=== PATIENT | female | born 1985 | race Caucasian/White ===

== ENCOUNTER 2017-03-08 21:07 | Emergency (ER) | payer OTHER ==
[~2017-03-08] VITALS: Ht 167.6 cm; Wt 106.6 kg
[~2017-03-08 21:07] MED LIST: ALBU-136 IH; BACL10TA4 PO; HYDR-4452 PO
[2017-03-08 21:15] VITALS: BP 126/76
--- NOTE | 2017-03-08 22:47 | NUR ---
PT TAKEN TO BED 1 Addendum: 03/08/17 at 2249 by DAVE PT TAKEN TO OF
--- NOTE | 2017-03-08 22:55 | NUR ---
PT BIB FAMILY C/O CHEST PAIN, STARTED AT 1600HOURS, LYING DOWN WHEN SHE COUGH IT HURTS, 8/10 SHARP PAIN, 9 WEEKS, LMP 3.7. EKG DONE, Pupils equal and reactive to light bilaterally. No facial droop noted. No smile deficit noted. Speech normal for patient. Patient is alert and oriented to person, place, time and event. Bilateral hand sub assembly team worker equal. Bilateral foot push equal. LUNGS CL BILAT, ER MD TO KUNAL, ALL OREDR EXECUTED.
--- NOTE | 2017-03-08 22:59 | NUR ---
Dr. Mckeon evaluating patient
[2017-03-08 23:17] VITALS: BP 122/71
== END 2017-03-08 23:19 | disposition home or self-care (01) ==
LOC: MED 21:07
DX: O98.511 Other viral diseases complicating pregnancy, first trimester (principal); B34.8 Other viral infections of unspecified site; O99.511 Diseases of the respiratory system complicating pregnancy, first trimester; J45.909 Unspecified asthma, uncomplicated; Z88.1 Allergy status to other antibiotic agents; Z3A.09 9 weeks gestation of pregnancy
CPT/HCPCS: 93005; 99283

== ENCOUNTER 2018-06-05 20:20 | Emergency (ER) | payer OTHER ==
[~2018-06-05] VITALS: Ht 167.6 cm; Wt 101.2 kg
[~2018-06-05 20:20] MED LIST changes: +ACET-787 PO; -HYDR-4452 PO
[2018-06-05 20:36] VITALS: BP 124/84
--- NOTE | 2018-06-05 20:39 | NUR ---
TO LOBBY VIA W/C, A/W BED, FANG SHERMAN NOTED
--- NOTE | 2018-06-05 21:11 | NUR ---
PT TAKEN TO ULTRASOUND FROM [facility]
--- NOTE | 2018-06-05 21:44 | NUR ---
PT RETURN FROM US TO [facility]
[2018-06-05 21:47] LABS: BASOPHILS % (AUTO) 0.3 % (0.0-2.0); EOSINOPHILS % (AUTO) 0.4 % (0.0-4.0); HEMATOCRIT 39.4 % (36-48); HEMOGLOBIN 13.1 g/dL (12.0-16.0); LYMPHOCYTES # (AUTO) 0.7 K/uL (2.5-16.5); LYMPHOCYTES % (AUTO) 7.2 % (20.5-51.1); MEAN CORPUSCULAR HEMOGLOBIN 29 pg (27-31); MEAN CORPUSCULAR HGB CONC 33 g/dL (33-37); MONOCYTES # (AUTO) 0.7 K/uL (0.8-1.0); MONOCYTES % (AUTO) 6.7 % (1.7-9.3); NEUTROPHILS # (AUTO) 8.9 K/uL (1.8-7.7); NEUTROPHILS % (AUTO) 85.4 % (42.2-75.2); PLATELET COUNT (AUTO) 221 K/uL (140-450); RED BLOOD CELL COUNT(AUTO) 4.48 MIL/uL (4.20-5.40); RED CELL DISTRIBUTION WIDTH 13.4 % (11.6-13.7); WHITE BLOOD COUNT (AUTO) 10.4 K/uL (4.8-10.8)
[2018-06-05 21:55] LABS: ANION GAP 11.5 (8-16); CREATININE 0.7 mg/dL (0.6-1.3); POTASSIUM 3.5 mmol/L (3.5-5.1)
[2018-06-05 22:01] LABS: ALBUMIN 3.9 g/dL (3.4-5.0); TOTAL BILIRUBIN 0.8 mg/dL (0.0-1.0)
--- NOTE | 2018-06-05 22:21 | NUR ---
PT TAKEN TO BED 4
--- NOTE | 2018-06-05 22:25 | NUR ---
ASSUMED CARE OF PT AT THIS TIME. C/O DIFFUSE ABDOMINAL PAIN W/ N/V X 12 HOURS. AAOX4 WITH EVEN AND STEADY GAIT; PATIENT STATES PAIN OF 8/10; VSS; PATIENT POSITIONED FOR COMFORT; HOB ELEVATED; BEDRAILS UP X2; BED DOWN. ER MD MADE AWARE OF PT STATUS. WILL CONTINUE TO MONITOR.
--- NOTE | 2018-06-05 23:15 | NUR ---
Dr. Smith evaluating patient at bedside.
[2018-06-05] MEDS ORDERED: ONDANSETRON 4 MG/2 ML VIAL IM ONE (23:25)
[2018-06-05] MEDS ORDERED: ALUMINUM HYD/MAG/SIMETHICONE 30 ML UDC PO ONE (23:40)
[2018-06-05] MEDS ORDERED: DICYCLOMINE HCL LIQUID 10 MG/5 ML UDC PO ONE (23:40)
[2018-06-05] MEDS ORDERED: LIDOCAINE VISCOUS 2% 20 ML UDC PO ONE (23:40)
--- NOTE | 2018-06-06 00:30 | NUR ---
Patient appears to be resting comfortably in bed. Vital Signs within normal limits. Respirations even and unlabored.
[2018-06-06 00:35] VITALS: BP 118/80
--- NOTE | 2018-06-06 00:35 | NUR ---
Patient discharged with v/s stable. Written and verbal after care instructions given and explained. Patient alert, oriented and verbalized understanding of instructions. Ambulatory with steady gait. All questions addressed prior to discharge. ID band removed. Patient advised to follow up with PMD. Rx of ZOFRAN AND OMEPRAZOLE given. Patient educated on indication of medication including possible reaction and side effects. Opportunity to ask questions provided and answered.
== END 2018-06-06 00:35 | disposition home or self-care (01) ==
LOC: MED 20:20
DX: K29.70 Gastritis, unspecified, without bleeding (principal); J45.909 Unspecified asthma, uncomplicated; Z88.1 Allergy status to other antibiotic agents; Z79.899 Other long term (current) drug therapy
CPT/HCPCS: 36415; 76705; 80053; 81002; 81025; 83690; 85025; 96372; 99285; J2405; Q0092

== ENCOUNTER 2021-05-05 09:41 | Emergency (ER) | payer OTHER ==
[~2021-05-05] VITALS: Ht 167.6 cm; Wt 114.8 kg
[~2021-05-05 09:41] MED LIST changes: -ACET-787 PO; +ALBU-118 IH; -ALBU-136 IH; +HYDR-5191 PO
--- NOTE | 2021-05-05 09:41 | NUR ---
BIBA TO BED 9
--- NOTE | 2021-05-05 09:42 | NUR ---
DR LEDEZMA AT BEDSIDE EVALUATING PT.
[2021-05-05 09:43] VITALS: BP 115/72
--- NOTE | 2021-05-05 09:48 | NUR ---
36yo female biba with c/o sob since midnight. Also reports chest pain 7/10, pressure-like, radiating to back, aggravated by coughing. Pt took Albuterol and Ibuprofen last night which provided relief. +cough non productive. denies exposure to covid, and anyone sick at home. Denies N/V. Pt in gown, on bus driver/monitor. SPO2 98% on RA. A&Ox4, respirations even and unlabored. PMH: Asthma meds: Albuterol allergy: Amoxicillin
[2021-05-05] MEDS ORDERED: ALBUTEROL HFA MDI 90 MCG/ACTUATION 8 GM INH ONE (09:50)
[2021-05-05] MEDS ORDERED: predniSONE 20 MG TAB PO ONE (09:50)
[2021-05-05] MEDS ORDERED: KETOROLAC 60 MG/2 ML VIAL IM ONE (09:50)
--- NOTE | 2021-05-05 09:50 | NUR ---
PT MOVED TO BED 1.
--- NOTE | 2021-05-05 10:08 | NUR ---
MDI THERAPY AND RESPIRATORY GIVEN ORDERED EDUCATION PROVIDED
--- NOTE | 2021-05-05 10:14 | NUR ---
RT AT BEDSIDE FOR BREATHING TREATMENT.
--- NOTE | 2021-05-05 10:15 | NUR ---
RAD AT BEDSIDE.
--- NOTE | 2021-05-05 10:33 | NUR ---
COVID ARUN, NOVEL, AND INFLUENZA AB SAMPLES COLLECTED AND WALKED TO LAB.
--- NOTE | 2021-05-05 10:44 | NUR ---
EMT AT BEDSIDE FOR EKG
--- NOTE | 2021-05-05 10:51 | NUR ---
PT AMBULATED TO RESTROOM WITH STEADY GAIT. PT GIVEN URINE CUP
--- NOTE | 2021-05-05 11:20 | NUR ---
read back from lab for hamilton , stated invalid. Dr. Mckeon made aware and stated for repeat hamilton.
--- NOTE | 2021-05-05 11:25 | NUR ---
REPORT GIVEN TO JOIE LAYNE, TRANSFER OF CARE AT THIS TIME.
--- NOTE | 2021-05-05 11:26 | NUR ---
Second Ann swab collected and walked to lab
--- NOTE | 2021-05-05 12:18 | NUR ---
Read back from lab for hamilton , stated invalid for second swab. Dr. Mckeon made aware.
[2021-05-05 12:51] VITALS: BP 121/77
[2021-05-05] MEDS ORDERED: PRED20TA5 PO (12:53)
== END 2021-05-05 12:50 | disposition home or self-care (01) ==
LOC: MED 09:41
DX: J45.901 Unspecified asthma with (acute) exacerbation (principal); Z20.822 Contact with and (suspected) exposure to COVID-19; B34.9 Viral infection, unspecified; J45.909 Unspecified asthma, uncomplicated; Z88.1 Allergy status to other antibiotic agents; Z79.899 Other long term (current) drug therapy
CPT/HCPCS: 71045; 87426; 87804; 93005; 94664; 96372; 99285; J1885; J7512; U0003

== ENCOUNTER 2022-06-15 16:13 | Emergency (ER) | payer OTHER ==
[~2022-06-15] VITALS: Ht 167.6 cm; Wt 105.2 kg
[~2022-06-15 16:13] MED LIST changes: +AZIT250T3 PO; +PRED20TA5 PO
[2022-06-15 17:00] VITALS: BP 131/74
--- NOTE | 2022-06-15 18:16 | NUR ---
ARUN SWAB COLLECTED AND HANDED TO INDUSTRIAL ARTS TEACHER
--- NOTE | 2022-06-15 18:30 | NUR ---
37/F PRESENTS TO ED WITH C/O COUGH AND HEADACHE X4 DAYS, REPORTS TAKING NYQUIL WITH NO RELIEF. DENIES SOB, FEVERS, CHILLS, STATES DAUGHTER HAD SAME SYMPTOMS LAST WEEK.
[2022-06-15] MEDS ORDERED: NIRM1TAB PO (18:55)
[2022-06-15] MEDS ORDERED: BENZ150C2 PO (18:55)
[2022-06-15 19:10] VITALS: BP 119/78
--- NOTE | 2022-06-15 19:10 | NUR ---
Patient discharged with v/s stable. Written and verbal after care instructions given and explained. Patient alert, oriented and verbalized understanding of instructions. Ambulatory with steady gait. All questions addressed prior to discharge. ID band removed. Patient advised to follow up with PMD. Rx of benzonatate, paxlovid co-pack given. Patient educated on indication of medication including possible reaction and side effects. Opportunity to ask questions provided and answered.
== END 2022-06-15 19:10 | disposition home or self-care (01) ==
LOC: MED 16:13
DX: U07.1 COVID-19 (principal); J45.909 Unspecified asthma, uncomplicated; Z79.899 Other long term (current) drug therapy; Z88.1 Allergy status to other antibiotic agents
CPT/HCPCS: 71045; 99284

== ENCOUNTER 2022-12-02 04:13 | Observation (INO) | payer OTHER ==
[~2022-12-02] VITALS: Ht 167.6 cm; Wt 111.6 kg
[~2022-12-02 04:13] MED LIST changes: +BENZ150C2 PO; +NIRM1TAB PO
[2022-12-02 04:14] VITALS: BP 128/71
--- NOTE | 2022-12-02 04:19 | NUR ---
Pt to bed 3, on monitor.
--- NOTE | 2022-12-02 04:20 | NUR ---
Received patient to ER w/ c/o left flank pain that woke her up from her sleep. Also c/o dysuria. Introduced self to patient, positioned for comfort. Bed to low position sr up, continue to monitor.
--- NOTE | 2022-12-02 04:20 | NUR ---
PT BROUGHT TO BED 3 VIA VIRGILIO WADSWORTH
--- NOTE | 2022-12-02 04:35 | NUR ---
MD Sheth at bedside.
[2022-12-02] MEDS ORDERED: MORPHINE SULFATE 2 MG/ML SYR IVP STA (04:42)
[2022-12-02] MEDS ORDERED: KETOROLAC 30 MG/ML VIAL IVP ONE (04:45)
--- NOTE | 2022-12-02 04:45 | NUR ---
Blood for labwork drawn from right hand iv h.l. site. Patient tolerated procedure. specimens sent to lab.
--- NOTE | 2022-12-02 04:52 | NUR ---
patient medicated as ordered w/ toradol and morphine ivp. Iv site to right hand patent and intact. Bed to low position sr up, continue to monitor. Will observe for any adverse reaction.
--- NOTE | 2022-12-02 04:53 | NUR ---
patient to ct scan via gur[facility] w/ cloud security architect.
[2022-12-02 04:58] LABS: APPEARANCE,URINE CLOUDY (CLEAR); BILIRUBIN,URINE NEGATIVE (NEGATIVE); BLOOD, URINE 3+ (NEGATIVE); COLOR,URINE YELLOW (YELLOW); LEUKOCYTE ESTERASE ,URINE TRACE (NEGATIVE); NITRITE, URINE NEGATIVE (NEGATIVE); UGLUCOSE NEGATIVE (NEGATIVE)
[2022-12-02 05:00] LABS: BASOPHILS # (AUTO) 0.1 K/uL (0.00-0.22); EOSINOPHILS # (AUTO) 0.1 K/uL (0-0.4); EOSINOPHILS % (AUTO) 1.4 % (0.0-4.0); HEMATOCRIT 38.2 % (36-48); HEMOGLOBIN 12.6 g/dL (12.0-16.0); LYMPHOCYTES # (AUTO) 2.7 K/uL (2.5-16.5); LYMPHOCYTES % (AUTO) 31.5 % (20.5-51.1); MEAN CORPUSCULAR HEMOGLOBIN 29 pg (27-31); MEAN CORPUSCULAR HGB CONC 33 g/dL (33-37); MEAN CORPUSCULAR VOLUME 86.8 fL (80-94); MONOCYTES # (AUTO) 0.8 K/uL (0.8-1.0); MONOCYTES % (AUTO) 9.7 % (1.7-9.3); NEUTROPHILS # (AUTO) 4.9 K/uL (1.8-7.7); NEUTROPHILS % (AUTO) 56.4 % (42.2-75.2); PLATELET COUNT (AUTO) 351 K/uL (140-450); WHITE BLOOD COUNT (AUTO) 8.6 K/uL (4.8-10.8)
[2022-12-02 05:02] LABS: RBC,URINE 11-20 (MOD) /HPF (0-5)
--- NOTE | 2022-12-02 05:08 | NUR ---
patient returned from ct scan.
[2022-12-02 05:40] LABS: ALBUMIN 3.7 g/dL (3.4-5.0); ANION GAP 12.7 (8-16); CARBON DIOXIDE 26.9 mmol/L (21-32); CREATININE 0.7 mg/dL (0.6-1.3); POTASSIUM 3.6 mmol/L (3.5-5.1); TOTAL BILIRUBIN 0.3 mg/dL (0.0-1.0)
[2022-12-02] MEDS ORDERED: MORPHINE SULFATE 4 MG/ML SYR ONE (06:33)
--- NOTE | 2022-12-02 06:36 | NUR ---
patient pain decreased to 5/10 but pain is slowly "creeping up." Patient medicated w/ another dose of morphine, 4mg this time. Iv site patent and intact. Bed to low position sr up, continue to monitor. Will monitor for any adverse reaction to medication.
[2022-12-02] MEDS ORDERED: cefTRIAXone 1,000 MG VIAL ONE (06:40)
--- NOTE | 2022-12-02 06:50 | NUR ---
patient medicated as ordered w/ 1gm rocephin ivpb, iv site to right hand patent and intact. Bed to low position sr up. will observe patient for any adverse reaction. continue to monitor.
[2022-12-02] MEDS ORDERED: MORPHINE SULFATE 4 MG/ML SYR IVP ONE (06:55)
--- NOTE | 2022-12-02 07:15 | NUR ---
LAB AT BEDSIDE FOR BLOOD CULTURE
--- NOTE | 2022-12-02 07:15 | NUR ---
Pt report giveN FROM CHERELLE LAYNE. Transfer of care at this time.
--- NOTE | 2022-12-02 07:21 | NUR ---
RECEIVED PT IN BED, RESPIRATIONS EVEN AND UNLABORED, IV 20G R HAND, DENIES PAIN AT THIS TIME, IN A GOWN AND ON THE AIRFRAME AND POWERPLANT TECHNICIAN
--- NOTE | 2022-12-02 07:25 | NUR ---
PER DR LEDEZMA, PT OK TO GET SOMETHING TO DRINK. PT GIVEN CUP OF WATER WITH ICE
--- NOTE | 2022-12-02 07:59 | NUR ---
SWABS WALKED AND HANDED TO LAB
[2022-12-02] MEDS ORDERED: ONDANSETRON 4 MG/2 ML VIAL IVP PRN (08:05)
[2022-12-02] MEDS ORDERED: HYDROcodone/APAP 5/325 MG 1 TAB TAB PO PRN (08:05)
[2022-12-02] MEDS ORDERED: ACETAMINOPHEN 325 MG TAB PO PRN (08:05)
[2022-12-02] MEDS ORDERED: NACL 0.9% 1,000 ML IV SCH (08:05)
[2022-12-02] MEDS ORDERED: MORPHINE SULFATE 4 MG/ML SYR IVP PRN (08:05)
--- NOTE | 2022-12-02 08:20 | NUR ---
RECEIVED TORB ORDER FROM DR DE ANDA FOR D5NS 80CC/HR FOR PT, BS 105 AT THIS TIME, CANCEL NS 80. PT PLACED ON NPO W/ MEDS
[2022-12-02] MEDS ORDERED: METF-713 PO (08:27)
--- NOTE | 2022-12-02 08:29 | NUR ---
DR DE ANDA AT BEDSIDE FOR EVAL, RECEIVED VERBAL ORDER FOR TORADOL 15MG IVP Q6H Addendum: 12/02/22 at [email or web address] DE ANDA, HOLD METFORMIN AND START PT ON HUMALOG SLIDING SCALE OR BS CONTROL
[2022-12-02] MEDS ORDERED: INSULIN LISPRO SLIDING SCALE 100 UNITS/ML VIAL SUBQ PRN (08:40)
[2022-12-02] MEDS ORDERED: KETOROLAC 15 MG/ML VIAL IVP PRN ×2 (08:40→11:00)
[2022-12-02] MEDS: DEXT 5% /NACL 0.9% 1,000 ML IV SCH ×2 (08:52→20:50)
[2022-12-02] MEDS: TAMSULOSIN 0.4 MG CAP PO SCH (08:52)
--- NOTE | 2022-12-02 09:43 | NUR ---
PATIENT HAS BEEN SCREENED AND CATEGORIZED MODERATE NUTRITION RISK. PATIENT WILL BE SEEN WITHIN 3-5 DAYS OF ADMISSION. REVIEWED BY SATISH TUBBS RD
--- NOTE | 2022-12-02 11:17 | NUR ---
PT AMBULATED TO BATHROOM WITH STEADY GAIT
[2022-12-02] MEDS: BLOOD GLUCOSE MONITORING 1 DEV DEV FS SCH ×3 (11:26→21:00)
[2022-12-02] MEDS ORDERED: BLOOD GLUCOSE MONITORING 1 DEV DEV FS SCH (12:00)
--- NOTE | 2022-12-02 13:10 | NUR ---
PT ARRIVED TO UNIT FROM ED. RECEIVED REPORT FROM ED NURSE FCO DAN FOR CONTINUITY OF CARE. PT IN STABLE CONDITION. PT WILL GOT TO PRIMARY RN ADZE.
--- NOTE | 2022-12-02 13:15 | NUR ---
Patient will be admitted to care of BENNIE AJ. Admited to MED SURG. Will go to room 104A. Belongings list completed. Report to GARO LAYNE.
[2022-12-02 16:00] VITALS: BP 110/62
[2022-12-02 20:00] VITALS: BP 102/59
--- NOTE | 2022-12-02 20:23 | NUR ---
RECEIVED REPORT FROM RUSSEL RN , PATIENT WAS IN STABLE CONDITION DURING REPORT. PATIENT WAS ALERT AND ORIENTED X 4. PATIENT DENIED ANY PAIN AT THIS TIME. PATIENT IS ON ROOM AIR. NO NOTED RESPIRATORY DISTRESS. CHEST IS RISING AND FALLING WITHOUT INCIDENT. PATIENT WOULD LIKE TO HAVE FOOD NOT THAT THEY HAVE DISCOVERED HER FLANK PAIN COMING FROM A STONE IN THE URETER. NURSING WILL CONVEY THIS REQUEST WITH THE UPHOLSTERY REPAIRER MD. SIDE RAILS UP X 2 FOR SAFETY AND ADJUSTMENTS. CALL LIGHT IN REACH. [email or web address]
--- NOTE | 2022-12-02 23:53 | NUR ---
PATIENT IN BED SLEPING WITHOUT INCIDENT. NO S/S OF PAIN/DISCOMFORT. NO S/S OF RESPIRATORY DISTRESS. [email or web address]
--- NOTE | 2022-12-03 01:30 | NUR ---
PATIENT IN BED SLEEPING. NO S/S OF PAIN/DISCOMFORT. NO S/S OF RESPIRATORY DISTRESS. [email or web address]
[2022-12-03 04:00] VITALS: BP 110/63
--- NOTE | 2022-12-03 05:00 | NUR ---
PATIENT REMAINS STABLE DURING THE SHIFT. [email or web address]
[2022-12-03] MEDS: BLOOD GLUCOSE MONITORING 1 DEV DEV FS SCH ×2 (06:34→12:22)
[2022-12-03 06:51] LABS: BASOPHILS % (AUTO) 0.3 % (0.0-2.0); EOSINOPHILS # (AUTO) 0.1 K/uL (0-0.4); EOSINOPHILS % (AUTO) 1.1 % (0.0-4.0); HEMATOCRIT 38.8 % (36-48); HEMOGLOBIN 12.9 g/dL (12.0-16.0); LYMPHOCYTES # (AUTO) 2.1 K/uL (2.5-16.5); LYMPHOCYTES % (AUTO) 26.1 % (20.5-51.1); MEAN CORPUSCULAR HEMOGLOBIN 29 pg (27-31); MEAN CORPUSCULAR HGB CONC 33 g/dL (33-37); MONOCYTES # (AUTO) 0.8 K/uL (0.8-1.0); MONOCYTES % (AUTO) 9.9 % (1.7-9.3); NEUTROPHILS # (AUTO) 5.1 K/uL (1.8-7.7); NEUTROPHILS % (AUTO) 62.6 % (42.2-75.2); PLATELET COUNT (AUTO) 330 K/uL (140-450); RED BLOOD CELL COUNT(AUTO) 4.46 MIL/uL (4.20-5.40); RED CELL DISTRIBUTION WIDTH 13.2 % (11.6-13.7); WHITE BLOOD COUNT (AUTO) 8.1 K/uL (4.8-10.8)
--- NOTE | 2022-12-03 07:21 | NUR ---
RECEIVED REPORT FROM NIGHT NURSE SABA FOR CONTINUITY OF CARE. INITIAL ASSESSMENT DONE. IVF INFUSING WELL. CALL LIGHT KEPT WITHIN REACH. WILL CONTINUE TO MONITOR.
--- NOTE | 2022-12-03 07:22 | NUR ---
ENDORSED PATIENT TO SHAHBAZ JAIN, PATIENT WAS STABLE DURING SHIFT REPORT. [email or web address]
[2022-12-03 08:00] VITALS: BP 105/57
[2022-12-03 08:48] LABS: ANION GAP 9.4 (8-16); CARBON DIOXIDE 30.4 mmol/L (21-32); CREATININE 0.8 mg/dL (0.6-1.3); POTASSIUM 3.8 mmol/L (3.5-5.1)
[2022-12-03] MEDS ORDERED: CEFD300C3 PO (08:56)
[2022-12-03] MEDS ORDERED: IBUP-2213 PO (08:57)
[2022-12-03] MEDS ORDERED: TAMS0.4C96 PO (08:57)
[2022-12-03] MEDS: DEXT 5% /NACL 0.9% 1,000 ML IV SCH (09:20)
--- NOTE | 2022-12-03 10:56 | NUR ---
SCHEDULED MEDICATIONS GIVEN. TOLERATING WELL.
[2022-12-03] MEDS: TAMSULOSIN 0.4 MG CAP PO SCH (10:57)
--- NOTE | 2022-12-03 12:22 | NUR ---
BS CHECKED, NO INSULIN COVERAGE NEEDED.
--- NOTE | 2022-12-03 12:41 | NUR ---
PT LEFT, DISCHARGE TO HOME, AMBULATORY. ACCOMPANIED BY HER . IV AND ID BAND REMOVED. PERSONAL BELONGINGS TAKEN. REMAINS STABLE.
== END 2022-12-03 13:40 | disposition home or self-care (01) ==
LOC: MED 04:13 → MTU 07:31
PROVIDERS: ADMIT Student in an Organized Health Care Education/Training Program; ATTEND Student in an Organized Health Care Education/Training Program
DX: N13.6 Pyonephrosis (principal); Z20.822 Contact with and (suspected) exposure to COVID-19; E66.9 Obesity, unspecified; I10 Essential (primary) hypertension; E11.65 Type 2 diabetes mellitus with hyperglycemia; Z79.899 Other long term (current) drug therapy
CPT/HCPCS: 36415; 74176; 80048; 80053; 81001; 82948; 83605; 83690; 83735; 85025; 87040; 87081; 87086; 87426; 96361; 96365; 96366; 96372; 96375; 96376; 99285; G0378; J0696; J1644; J1815; J1885; J2270; J2405; J7060

== ENCOUNTER 2022-12-08 08:24 | Observation (INO) | payer OTHER ==
[~2022-12-08] VITALS: Ht 167.6 cm; Wt 109.0 kg
[~2022-12-08 08:24] MED LIST changes: -AZIT250T3 PO; +CEFD300C3 PO; +IBUP-2213 PO; +METF-713 PO; +TAMS0.4C96 PO
[2022-12-08 08:29] VITALS: BP 122/67
[2022-12-08] MEDS ORDERED: ACETAMINOPHEN 325 MG TAB PO ONE (08:50)
[2022-12-08] MEDS ORDERED: ONDANSETRON 4 MG/2 ML VIAL IVP ONE (08:55)
[2022-12-08] MEDS ORDERED: MORPHINE SULFATE 4 MG/ML SYR IVP ONE (08:55)
[2022-12-08] MEDS ORDERED: ONDANSETRON 4 MG/2 ML VIAL ONE (08:56)
[2022-12-08] MEDS ORDERED: MORPHINE SULFATE 4 MG/ML SYR ONE (08:56)
[2022-12-08 09:16] LABS: BASOPHILS # (AUTO) 0.1 K/uL (0.00-0.22); BASOPHILS % (AUTO) 0.6 % (0.0-2.0); EOSINOPHILS # (AUTO) 0.1 K/uL (0-0.4); EOSINOPHILS % (AUTO) 0.6 % (0.0-4.0); HEMATOCRIT 40.1 % (36-48); HEMOGLOBIN 13.3 g/dL (12.0-16.0); LYMPHOCYTES # (AUTO) 2.1 K/uL (2.5-16.5); LYMPHOCYTES % (AUTO) 20.1 % (20.5-51.1); MEAN CORPUSCULAR HEMOGLOBIN 29 pg (27-31); MEAN CORPUSCULAR HGB CONC 33 g/dL (33-37); MONOCYTES # (AUTO) 0.7 K/uL (0.8-1.0); MONOCYTES % (AUTO) 6.9 % (1.7-9.3); NEUTROPHILS # (AUTO) 7.5 K/uL (1.8-7.7); NEUTROPHILS % (AUTO) 71.8 % (42.2-75.2); PLATELET COUNT (AUTO) 328 K/uL (140-450); RED BLOOD CELL COUNT(AUTO) 4.61 MIL/uL (4.20-5.40); RED CELL DISTRIBUTION WIDTH 13.6 % (11.6-13.7); WHITE BLOOD COUNT (AUTO) 10.4 K/uL (4.8-10.8)
[2022-12-08 10:17] LABS: ANION GAP 13.7 (8-16); CARBON DIOXIDE 27.1 mmol/L (21-32); CREATININE 0.8 mg/dL (0.6-1.3); POTASSIUM 3.8 mmol/L (3.5-5.1); TOTAL BILIRUBIN 0.5 mg/dL (0.0-1.0)
[2022-12-08] MEDS ORDERED: KETOROLAC 30 MG/ML VIAL IVP ONE (11:00)
[2022-12-08] MEDS ORDERED: ENAL5TAB48 PO (13:15)
[2022-12-08] MEDS ORDERED: KETOROLAC 15 MG/ML VIAL ONE (13:47)
[2022-12-08] MEDS ORDERED: NACL 0.9% 1,000 ML IV ONE (13:50)
[2022-12-08] MEDS ORDERED: KETOROLAC 15 MG/ML VIAL IVP ONE (13:50)
[2022-12-08] MEDS ORDERED: ONDANSETRON 4 MG/2 ML VIAL IVP PRN (14:10)
[2022-12-08] MEDS ORDERED: LORazepam 2 MG/ML VIAL IVP PRN (14:10)
[2022-12-08] MEDS: NACL 0.9% 1,000 ML IV SCH (14:10)
[2022-12-08] MEDS ORDERED: ACETAMINOPHEN 325 MG TAB PO PRN (14:10)
[2022-12-08] MEDS ORDERED: MORPHINE SULFATE 2 MG/ML SYR IVP PRN (14:10)
[2022-12-08] MEDS ORDERED: HYDROcodone/APAP 5/325 MG 1 TAB TAB PO PRN (14:10)
[2022-12-08] MEDS ORDERED: LEVOFLOXACIN 500 MG/D5W PREMIX 100 ML IV SCH (16:00)
--- NOTE | 2022-12-08 17:20 | NUR ---
PATIENT HAS BEEN SCREENED AND CATEGORIZED MODERATE NUTRITION RISK. PATIENT WILL BE SEEN WITHIN 3-5 DAYS OF ADMISSION. / REVIEWED BY SATISH TUBBS RD
--- NOTE | 2022-12-08 17:55 | NUR ---
[facility] AWAKE, ALERT, AND ORIENTED X4. SPEECH CLEAR. NO SOB, NOTED. C/O LEFT LOWER BACK PAIN /. SKIN WARM, DRY AND INTACT. KEEP COMFORTABLE ON BED. WILL ENDORSE TO NEXT SHIFT NURSE FOR COMPLETE ADMISSION PROCESS. INFORMED CHARGE NURSE TRISTEN QUACH.
--- NOTE | 2022-12-08 18:03 | NUR ---
PT TAKEN PER THIS RN TO ROOM 106B WITH DINER TRAY. REPORT GIVEN TO WINDOW ASSEMBLER AND GIVEN TO ROVERTO HAGAN. ALL INFO GIVEN AND QUESTIONS ANSERED. VSS/NAD. ALL BELONGINGS SENT WITH PT
--- NOTE | 2022-12-08 19:14 | NUR ---
INITIAL REPORT GIVEN TO PAUL QUACH FOR PT. COMPLETE ADMISSION PROCESS.
[2022-12-08 20:00] VITALS: BP 108/66
[2022-12-09] MEDS: NACL 0.9% 1,000 ML IV SCH ×2 (01:48→10:36)
--- NOTE | 2022-12-09 04:31 | NUR ---
MRSA SCREEN VIA NASAL SWAB COLLECTED AND READY FOR LAB P/U.
--- NOTE | 2022-12-09 07:15 | NUR ---
REPORT RECEIVED FROM NIGHT NURSE PAUL FOR CONTINUITY OF CARE. INITIAL ASSESSMENT DONE. NO C/O PAIN OR DISCOMFORT. CALL LIGHT KEPT WITHIN REACH. WILL CONTINUE TO MONITOR.
[2022-12-09 07:47] LABS: BASOPHILS % (AUTO) 0.2 % (0.0-2.0); EOSINOPHILS # (AUTO) 0.1 K/uL (0-0.4); HEMATOCRIT 39.5 % (36-48); HEMOGLOBIN 13.2 g/dL (12.0-16.0); LYMPHOCYTES # (AUTO) 2.4 K/uL (2.5-16.5); LYMPHOCYTES % (AUTO) 25.1 % (20.5-51.1); MEAN CORPUSCULAR HEMOGLOBIN 29 pg (27-31); MEAN CORPUSCULAR HGB CONC 33 g/dL (33-37); MEAN CORPUSCULAR VOLUME 86.6 fL (80-94); MONOCYTES % (AUTO) 9.8 % (1.7-9.3); NEUTROPHILS # (AUTO) 6.2 K/uL (1.8-7.7); NEUTROPHILS % (AUTO) 63.9 % (42.2-75.2); PLATELET COUNT (AUTO) 288 K/uL (140-450); RED BLOOD CELL COUNT(AUTO) 4.57 MIL/uL (4.20-5.40); RED CELL DISTRIBUTION WIDTH 13.5 % (11.6-13.7); WHITE BLOOD COUNT (AUTO) 9.7 K/uL (4.8-10.8)
[2022-12-09 08:00] VITALS: BP 110/76
[2022-12-09 08:13] LABS: ALBUMIN 3.5 g/dL (3.4-5.0); CREATININE 0.9 mg/dL (0.6-1.3); MAGNESIUM 1.7 mg/dL (1.8-2.4)
--- NOTE | 2022-12-09 08:57 | NUR ---
SCHEDULED MEDICATIONS GIVEN. TOLERATING WELL.
[2022-12-09] MEDS ORDERED: ENOXAPARIN 40 MG/0.4 ML SYR SUBQ SCH (09:00)
--- NOTE | 2022-12-09 13:05 | NUR ---
SEEN BY DR. SAMPSON WITH DISCHARGE ORDER.
--- NOTE | 2022-12-09 14:35 | NUR ---
PT LEFT, DISCHARGE TO HOME. TRANSPORTED BY PRIVATE VEHICLE. AMBULATORY. ACCOMPANIED BY HER . ALERT AND ORIENTED X4. IV AND ID BAND REMOVED. PERSONAL BELONGINGS TAKEN. DISCHARGE PAPERWORKS SIGN BY PT. NO C/O PAIN OR DISCOMFORT. REMAINS STABLE.
== END 2022-12-09 14:44 | disposition home or self-care (01) ==
LOC: MED 08:24 → MTU 14:13
PROVIDERS: ADMIT Hospitalist; ATTEND Hospitalist
DX: N20.0 Calculus of kidney (principal); Z20.822 Contact with and (suspected) exposure to COVID-19; I10 Essential (primary) hypertension; E86.0 Dehydration; E11.9 Type 2 diabetes mellitus without complications; J45.909 Unspecified asthma, uncomplicated; E66.9 Obesity, unspecified; Z79.899 Other long term (current) drug therapy
CPT/HCPCS: 36415; 74176; 80053; 83690; 83735; 84703; 85025; 87081; 87426; 96361; 96365; 96372; 96375; 96376; 99285; G0378; J1650; J1885; J1956; J2270; J2405

== ENCOUNTER 2023-11-21 08:25 | Emergency (ER) | payer OTHER ==
[~2023-11-21] VITALS: Ht 167.6 cm; Wt 107.5 kg
[~2023-11-21 08:25] MED LIST changes: +ENAL5TAB48 PO
[2023-11-21 08:36] VITALS: BP 132/85; PULSE 113; RESP 17; TEMP 99.4; O2SAT 100
[2023-11-21 09:53] LABS: BASOPHILS % (AUTO) 0.6 % (0.0-2.0); EOSINOPHILS # (AUTO) 0.1 K/uL (0-0.4); EOSINOPHILS % (AUTO) 1.5 % (0.0-4.0); HEMATOCRIT 41.4 % (36-48); HEMOGLOBIN 13.9 g/dL (12.0-16.0); LYMPHOCYTES # (AUTO) 1.5 K/uL (2.5-16.5); LYMPHOCYTES % (AUTO) 20.9 % (20.5-51.1); MEAN CORPUSCULAR HEMOGLOBIN 29 pg (27-31); MEAN CORPUSCULAR HGB CONC 34 g/dL (33-37); MEAN CORPUSCULAR VOLUME 86.3 fL (80-94); MONOCYTES % (AUTO) 13.3 % (1.7-9.3); NEUTROPHILS # (AUTO) 4.6 K/uL (1.8-7.7); NEUTROPHILS % (AUTO) 63.7 % (42.2-75.2); PLATELET COUNT (AUTO) 237 K/uL (140-450); RED BLOOD CELL COUNT(AUTO) 4.79 MIL/uL (4.20-5.40); RED CELL DISTRIBUTION WIDTH 13.5 % (11.6-13.7); WHITE BLOOD COUNT (AUTO) 7.2 K/uL (4.8-10.8)
[2023-11-21 09:59] LABS: ANION GAP 9.7 (8-16); CALCIUM 8.5 mg/dL (8.5-10.1); CARBON DIOXIDE 30.3 mmol/L (21-32); CREATININE 0.7 mg/dL (0.6-1.3)
[2023-11-21] MEDS ORDERED: ACETAMINOPHEN EXTRA STRENGTH 500 MG TAB ONE (10:37)
[2023-11-21] MEDS ORDERED: KETOROLAC 30 MG/ML VIAL ONE (10:38)
[2023-11-21] MEDS ORDERED: PRED20TA5 PO (10:40)
[2023-11-21] MEDS: ACETAMINOPHEN EXTRA STRENGTH 500 MG TAB PO ONE (10:41)
[2023-11-21] MEDS: KETOROLAC 30 MG/ML VIAL IM ONE (10:43)
[2023-11-21 10:56] VITALS: BP 132/85; PULSE 113; RESP 17; TEMP 99.4; O2SAT 100
== END 2023-11-21 10:56 | disposition home or self-care (01) ==
LOC: MED 08:25
DX: R05.9 Cough, unspecified (principal); R07.9 Chest pain, unspecified; R00.0 Tachycardia, unspecified; Z79.899 Other long term (current) drug therapy; Z79.1 Long term (current) use of non-steroidal anti-inflammatories (NSAID); Z88.0 Allergy status to penicillin
CPT/HCPCS: 36415; 71045; 80048; 84484; 85025; 93005; 96372; 99285; J1885